=== PATIENT | female | born 2000 | race Caucasian/White ===

== ENCOUNTER 2019-05-18 07:43 | Day surgery (SDC) | payer OTHER ==
[2019-05-18] MEDS ORDERED: DEXAMETHASONE SODIUM PHOSPHATE 10 MG in SODIUM CHLORIDE 50 ML IVPB ONE (10:00)
[2019-05-18] MEDS ORDERED: FERRIC CARBOXYMALTOSE 750 MG in SODIUM CHLORIDE 250 ML IVPB ONE (10:30)
[2019-05-18] MEDS ORDERED: CYANOCOBALAMIN (VITAMIN B-12) 1000 MCG/1 ML VIAL IM ONE (10:30)
[2019-05-18 18:28] VITALS: BP 108/57; PULSE 74; TEMP 97.8
== END 2019-05-18 15:50 | disposition home or self-care (01) ==
LOC: JONCNONCHE 07:43 → J7W 13:49 → JONCNONCHE 15:50
PROVIDERS: ATTEND Internal Medicine Hematology & Oncology
PROC: 3E033GC Introduction of Other Therapeutic Substance into Peripheral Vein, Percutaneous Approach (ICD-10-PCS; principal; 2019-05-18)
DX: D50.9 Iron deficiency anemia, unspecified (principal)
CPT/HCPCS: 96365; 96372; J1439

== ENCOUNTER → 2019-05-25 | Day surgery (SDC) | payer OTHER | LOC: JONCNONCHE 08:09 ==